=== PATIENT | female | born 1995 | race Hispanic/Latino ===

== ENCOUNTER 2019-04-28 11:18 | Emergency (ER) | payer SELFPAY ==
[2019-04-28] MEDS ORDERED: Ondansetron ODT 4 MG TAB ONE (12:18)
== END 2019-04-28 12:50 | disposition home or self-care (01) ==
LOC: ERS 11:18
DX: R11.2 Nausea with vomiting, unspecified (principal)
CPT/HCPCS: 99283; Q0162

== ENCOUNTER 2019-05-09 15:50 | Emergency (ER) | payer SELFPAY ==
[2019-05-09] MEDS ORDERED: Ketorolac Tromethamine 60 MG/2 ML VIAL ONE (16:23)
[2019-05-09] MEDS ORDERED: Dexamethasone 10 MG/ML VIAL ONE (16:23)
[2019-05-09 17:25] LABS: Pregnancy Test - Urine (BHCG) Negative (Negative); Pregu Control Background? CLEAR/WHITE (CLR/WHITE); Pregu Control Bar Appear? YES (CONTROL BAR); Specific Gravity 1.014 (1.002-1.036)
--- NOTE | 2019-05-09 19:11 | RAD ---
THREE VIEWS LUMBAR SPINE: History: Pain. FINDINGS: Five lumbar type vertebrae. Vertebral body heights are maintained. There is no fracture. No spondylol isthesis or spondylosis. Disc space heights are preserved. 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 Visualized bony pelvis and sacrum are unremarkable. IMPRESSION: No acute abnormality of the lumbar spine. MRI if clinically warranted. POS: PPP
== END 2019-05-09 18:35 | disposition home or self-care (01) ==
LOC: ERS 15:50
DX: M54.5 Low back pain (principal); X50.9XXA Other and unspecified overexertion or strenuous movements or postures, initial encounter; Y93.89 Activity, other specified
CPT/HCPCS: 72100; 81025; 96372; J1100; J1885

== ENCOUNTER 2019-09-23 18:34 | Emergency (ER) | payer SELFPAY ==
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
== END 2019-09-23 19:31 | disposition home or self-care (01) ==
LOC: ERS 18:34
DX: S40.012A Contusion of left shoulder, initial encounter (principal); V89.2XXA Person injured in unspecified motor-vehicle accident, traffic, initial encounter
CPT/HCPCS: 71045

== ENCOUNTER 2020-03-06 05:42 | Emergency (ER) | payer OTHER, SELFPAY ==
[2020-03-06 09:29] LABS: SARS-CoV-2 MS2 Positive; SARS-CoV-2 N Gene Positive; SARS-CoV-2 S Gene Positive; SARS-CoV-2 by NAA DETECTED (NotDetected); SARS-CoV-2 orf1ab Positive
== END 2020-03-06 06:05 | disposition home or self-care (01) ==
LOC: ERS 05:42
DX: U07.1 COVID-19 (principal)
CPT/HCPCS: 87635; 99284; U0003

== ENCOUNTER 2021-01-15 13:39 | Emergency (ER) | payer SELFPAY ==
[2021-01-15 20:42] LABS: SARS-CoV-2 PCR by NAA Not Detected (NotDetected)
== END 2021-01-15 14:48 | disposition home or self-care (01) ==
LOC: ERS 13:39
DX: J02.9 Acute pharyngitis, unspecified (principal); R43.9 Unspecified disturbances of smell and taste; Z20.822 Contact with and (suspected) exposure to COVID-19
CPT/HCPCS: 99283; U0003; U0005

== ENCOUNTER 2021-08-12 13:26 | Emergency (ER) | payer SELFPAY | END 2021-08-12 15:13 | disposition home or self-care (01) | LOC: ERS 13:26 | DX: J11.1 Influenza due to unidentified influenza virus with other respiratory manifestations (principal) | CPT/HCPCS: 99282 ==

== ENCOUNTER 2021-11-13 09:10 | Emergency (ER) | payer SELFPAY ==
[~2021-11-13 09:10] MED LIST: Iopamidol-370 76% 500 ML 1 ML ONE
[2021-11-13 10:15] LABS: #Eosinphils 0.1 thou/uL (0.0-0.7); #Lymphocytes 2.4 thou/uL (1.20-3.40); #Monocytes 0.4 thou/uL (0.11-0.59); #Neutrophils 4.9 thou/uL (1.40-6.50); %Basophils 0.5 % (0.0-1.0); %Eosinophils 0.8 % (0.0-10.0); %Lymphocytes 30.8 % (21.0-51.0); %Monocytes 5.2 % (0.0-10.0); %Neutrophils 62.7 % (42.0-75.0); Mean Corpuscular HGB CONC 32.8 g/dL (32.0-36.0); Mean Corpuscular Hemoglobin 29.4 pg (27.0-31.0); Mean Corpuscular Volume 89.6 fL (78.0-98.0); Mean Platelet Volume 7.8 fL (7.4-10.4); Platelet Count 255 thou/uL (130-400); Red Blood Cell (RBC) Count 4.41 mill/uL (4.20-5.40); White Blood Cell (WBC) Count 7.9 thou/uL (4.8-10.8)
[2021-11-13 10:28] LABS: BHCG - Serum Negative (NEGATIVE); Pregs Control Background? CLEAR/WHITE (CLR/WHITE); Pregs Control Bar Appear? YES (CONTROL BAR)
[2021-11-13 10:30] LABS: ALT (SGPT) 24 U/L (8-55); AST (SGOT) 18 U/L (5-34); Alkaline Phosphatase 100 U/L (40-110); Anion Gap 14 mmol/L (10-20); BUN (Urea Nitrogen) 14 mg/dL (7.0-18.7); Bilirubin, Total 0.9 mg/dL (0.2-1.2); Calc. Creatinine Clearance 0 mL/min (70-130); Calcium 8.9 mg/dL (7.8-10.44); Carbon Dioxide 22 mmol/L (22-29); Chloride 107 mmol/L (98-107); Estimated GFR 125; Globulin 3.3 g/dL (2.4-3.5); Glucose 105 mg/dL (70-105); Lipase 6 U/L (8-78); Potassium 3.6 mmol/L (3.5-5.1); Protein, Total 7.3 g/dL (6.0-8.3); Sodium 139 mmol/L (136-145)
[2021-11-13] MEDS ORDERED: Ketorolac Tromethamine 30 MG/ML VIAL ONE (11:14)
[2021-11-13 12:14] LABS: Bacteria/HPF 4+ HPF (None Seen); Bilirubin Negative (Negative); Blood, Urine Negative (Negative); Clarity Clear (Clear); Glucose, Urine (Dipstick) Normal (Negative); Ketone, Urine Negative (Negative); Leukocyte 250 Leu/uL (Negative); Nitrite 2+ (Negative); Protein, Urine (Dipstick) 20 mg/dL (Neg-Trace); RBC/HPF 0-3 HPF (0-3); Urobilinogen Normal mg/dL (Less than 2); pH, Urine 6.5 (5.0-9.0)
[2021-11-13 12:15] LABS: Specific Gravity, Urine 1.054 (1.002-1.036)
== END 2021-11-13 12:55 | disposition home or self-care (01) ==
LOC: ERS 09:10 → EEVIPCON 09:10 → ERS 12:55
DX: N39.0 Urinary tract infection, site not specified (principal); D25.9 Leiomyoma of uterus, unspecified
CPT/HCPCS: 36415; 74177; 80053; 81003; 81015; 83690; 84703; 85025; 96374; J1885; Q9967

== ENCOUNTER 2022-01-31 12:23 | Emergency (ER) | payer SELFPAY ==
[2022-01-31 13:00] LABS: #Basophils 0.1 thou/uL (0.0-0.2); #Eosinphils 0.1 thou/uL (0.0-0.7); #Lymphocytes 2.9 thou/uL (1.20-3.40); #Monocytes 0.6 thou/uL (0.11-0.59); #Neutrophils 5.4 thou/uL (1.40-6.50); %Basophils 0.7 % (0.0-1.0); %Eosinophils 1.1 % (0.0-10.0); %Lymphocytes 32.4 % (21.0-51.0); %Monocytes 6.4 % (0.0-10.0); %Neutrophils 59.5 % (42.0-75.0); Hemoglobin 13.7 g/dL (12.0-16.0); Mean Corpuscular HGB CONC 32.3 g/dL (32.0-36.0); Mean Corpuscular Hemoglobin 28.6 pg (27.0-31.0); Mean Corpuscular Volume 88.6 fl (78.0-98.0); Platelet Count 269 thou/uL (130-400); RBC Distribution Width 13.3 % (11.5-14.5); Red Blood Cell (RBC) Count 4.79 mill/uL (4.20-5.40); White Blood Cell (WBC) Count 9.1 thou/uL (4.8-10.8)
[2022-01-31 13:20] LABS: ALT (SGPT) 53 U/L (8-55); AST (SGOT) 31 U/L (5-34); Albumin 3.9 g/dL (3.5-5.0); Alkaline Phosphatase 101 U/L (40-110); Anion Gap 10 mmol/L (10-20); BUN (Urea Nitrogen) 8 mg/dL (7.0-18.7); Bilirubin, Total 0.7 mg/dL (0.2-1.2); Calc. Creatinine Clearance 0 mL/min (70-130); Calcium 9.1 mg/dL (7.8-10.44); Carbon Dioxide 23 mmol/L (22-29); Chloride 105 mmol/L (98-107); Estimated GFR 122; Globulin 3.7 g/dL (2.4-3.5); Glucose 87 mg/dL (70-105); Lipase 8 U/L (8-78); Potassium 3.5 mmol/L (3.5-5.1); Protein, Total 7.6 g/dL (6.0-8.3); Sodium 134 mmol/L (136-145)
[2022-01-31] MEDS ORDERED: Ondansetron ODT 4 MG TAB ONE (13:41)
[2022-01-31 13:59] LABS: Bacteria/HPF 1+ HPF (None Seen); Bilirubin Negative (Negative); Blood, Urine Negative (Negative); Clarity Turbid (Clear); Glucose, Urine (Dipstick) Normal (Negative); Ketone, Urine Trace mg/dL (Negative); Leukocyte 500 Leu/uL (Negative); Nitrite Negative (Negative); Protein, Urine (Dipstick) 30 mg/dL (Neg-Trace); RBC/HPF 0-3 HPF (0-3); Specific Gravity, Urine 1.032 (1.002-1.036); Squamous Epithelial 21-50 HPF (0-3); Urobilinogen Normal mg/dL (Less than 2); WBC/HPF 21-50 HPF (0-3); pH, Urine 5.5 (5.0-9.0)
== END 2022-01-31 15:20 | disposition home or self-care (01) ==
LOC: ERS 12:23
DX: O23.41 Unspecified infection of urinary tract in pregnancy, first trimester (principal); N39.0 Urinary tract infection, site not specified; Z3A.01 Less than 8 weeks gestation of pregnancy
CPT/HCPCS: 36415; 76856; 80053; 81003; 81015; 83690; 84702; 85025; Q0162

== ENCOUNTER 2022-02-25 11:14 | Emergency (ER) | payer MEDICAID | END 2022-02-25 12:30 | disposition home or self-care (01) | LOC: ERS 11:14 | DX: B35.3 Tinea pedis (principal); L03.116 Cellulitis of left lower limb | CPT/HCPCS: 99283 ==

== ENCOUNTER 2022-03-11 19:56 | Emergency (ER) | payer MEDICAID ==
[2022-03-11 20:54] LABS: #Basophils 0.1 thou/uL (0.0-0.2); #Eosinphils 0.1 thou/uL (0.0-0.7); #Lymphocytes 2.9 thou/uL (1.20-3.40); #Monocytes 0.5 thou/uL (0.11-0.59); #Neutrophils 5.9 thou/uL (1.40-6.50); %Basophils 0.5 % (0.0-1.0); %Eosinophils 1.2 % (0.0-10.0); %Lymphocytes 31.2 % (21.0-51.0); %Monocytes 5.1 % (0.0-10.0); %Neutrophils 62.1 % (42.0-75.0); Hemoglobin 13.5 g/dL (12.0-16.0); Mean Corpuscular HGB CONC 33.5 g/dL (32.0-36.0); Mean Corpuscular Hemoglobin 29.4 pg (27.0-31.0); Mean Corpuscular Volume 87.7 fl (78.0-98.0); Mean Platelet Volume 7.7 fL (7.4-10.4); Platelet Count 269 10x3/uL (130-400); RBC Distribution Width 13.6 % (11.5-14.5); White Blood Cell (WBC) Count 9.4 10x3/uL (4.8-10.8)
[2022-03-11 21:19] LABS: ALT (SGPT) 38 U/L (8-55); AST (SGOT) 22 U/L (5-34); Albumin 3.6 g/dL (3.5-5.0); Alkaline Phosphatase 94 U/L (40-110); Anion Gap 12 mmol/L (10-20); BUN (Urea Nitrogen) 7 mg/dL (7.0-18.7); Bilirubin, Total 0.3 mg/dL (0.2-1.2); Calc. Creatinine Clearance 0 mL/min (70-130); Carbon Dioxide 21 mmol/L (22-29); Chloride 107 mmol/L (98-107); Estimated GFR 127; Globulin 3.6 g/dL (2.4-3.5); Glucose 86 mg/dL (70-105); Potassium 3.9 mmol/L (3.5-5.1); Protein, Total 7.2 g/dL (6.0-8.3); Sodium 136 mmol/L (136-145)
== END 2022-03-11 22:32 | disposition home or self-care (01) ==
LOC: ERS 19:56
DX: O20.0 Threatened abortion (principal); Z3A.13 13 weeks gestation of pregnancy
CPT/HCPCS: 36415; 76856; 80053; 85025; 93976

== ENCOUNTER 2022-04-23 22:30 | Emergency (ER) | payer OTHER ==
[2022-04-24] MEDS ORDERED: Lidocaine 4% Cream 5 GM TUBE w/ Tegaderm ONE (00:22)
[2022-04-24] MEDS ORDERED: Lidocaine 1% PF 5 ML VIAL ONE (00:22)
[2022-04-24] MEDS ORDERED: Boostrix 0.5 ML (Tdap) VIAL (>/=7 yrs of age) ONE ×2 (00:27→00:39)
== END 2022-04-24 01:40 | disposition home or self-care (01) ==
LOC: ERS 22:30
DX: L02.211 Cutaneous abscess of abdominal wall (principal); Z23 Encounter for immunization
CPT/HCPCS: 10060; 87070; 87205; 90471; 90715